=== PATIENT | male | born 1935 | race Caucasian/White ===

== ENCOUNTER → 2018-06-04 10:44 | Outpatient (CLI) | payer MEDICARE, OTHER, SELFPAY ==
--- NOTE | 2018-06-04 | DI.ECHO.S_ITS ---
[facility]---------+ [facility] +---------+ : : [address] : [place] [address] : : : : [id number] : : : : Phone: [phone] +---------+ Echocardiogram Report + + :Name: MIKAYLA ORELLANA Study Date: 06/04/2018 Height: 69 in : :[facility] Weight: 220 lb : : Gender: Male BSA: 2.2 m2 : :: 1935 Age: 82 yrs BP: 134/80 mmHg: :Reason For Study: DYSPNEA : : Performed By: Renetta Rodgers : :Referring: JAYLEN MORENO : + + Interpretation Summary Left ventricular size and systolic function are normal without focal wall motion abnormalities with the ejection fraction visually estimated to be 60- 65% with borderline concentric left ventricular hypertrophy. There has been no significant change since the previous study. The right ventricle is not well visualized but grossly appears normal in size with probable normal systolic function and is likely unchanged compared to the previous study. The right ventricular systolic pressure is estimated to be at least 45 mmHg based on an estimated right atrial pressure of 8 mm Hg, and is likely slightly lower compared to the previous study. The left atrium is mildly dilated while the right atrium is severely dilated. The left atrium has mildly decreased in size but the right atrium is significantly larger compared to the previous study. There is moderate mitral regurgitation that is unchanged compared to the previous study. There is moderate aortic regurgitation, moderate tricuspid regurgitation, and mild pulmonic regurgitation that are all slightly more prominent compared to the previous study. The ascending aorta is mildly enlarged but is unchanged compared to the previous study. The patient was in atrial fibrillation with heart rates between 83-121 bpm which is slightly faster compared to the previous study. Procedure: A two-dimensional transthoracic echocardiogram with color flow and Doppler was performed. The study quality was technically difficult. Comparison is made with the echocardiogram of 02/06/2017. A contrast injection of Definity was performed to improve assessment of LV function. The patient was in atrial fibrillation with heart rates between 83-121 bpm during the exam. This is slightly faster compared to the previous study. Left Ventricle: The left ventricle is normal in size. There is borderline concentric left ventricular hypertrophy. Left ventricular systolic function is normal without focal wall motion abnormalities. The ejection fraction is estimated to be 60-65%. Diastolic function could not be accurately assessed due to atrial fibrillation. There has been no significant change since the previous study. Right Ventricle: The right ventricle is not well visualized. The right ventricle grossly appears normal in size with probable normal systolic function. This is unchanged compared to the previous study. Atria: The left atrium is mildly dilated. The left atrium has mildly decreased in size since the prior echo exam. The right atrium is severely dilated. This is significantly larger compared to the previous study. There is no Doppler evidence for an interatrial shunt. Mitral Valve: The mitral valve leaflets appear mildly thickened, but open well. There is moderate mitral regurgitation. This is unchanged compared to the previous study. Aortic Valve: The aortic valve is trileaflet. There is mild aortic valve sclerosis. There is moderate aortic regurgitation. This is slightly more prominent compared to the previous study. Tricuspid Valve: The tricuspid valve is not well visualized, but is grossly normal. There is moderate tricuspid regurgitation. This is slightly more prominent compared to the previous study. The right ventricular systolic pressure is estimated to be at least 45 mmHg based on an estimated right atrial pressure of 8 mm Hg. And is likely slightly lower compared to the previous study. Pulmonic Valve: The pulmonic valve is not well seen, but is grossly normal. There is mild pulmonic regurgitation. This is slightly more prominent compared to the previous study. Great Vessels: The aortic root is normal size. The ascending aorta is mildly enlarged. This is unchanged compared to the previous study. The aortic arch is normal in size. The pulmonary artery is normal size. The IVC is dilated (diameter is greater than 2.1 cm) yet it collapses greater than 50% with a sniff. This suggests a right atrial pressure of 8 mm Hg. Pericardium/ Pleura There is no pericardial effusion. There is no pleural effusion. MMode/2D Measurements & Calculations LVIDd: 3.8 cm LVOT diam: 2.2 cm LVIDs: 2.4 cm Ao root diam: 3.3 cm FS: 36.2 % asc Aorta Diam: 3.8 cm IVSd: 1.2 cm Ao Arch Diam (distal): 2.9 cm LVPWd: 1.3 cm LV lopez. diameter/BSA (cm/m^2): 1.8 LV sys. diameter/BSA (cm/m^2): 1.1 LA A2 area: 21.8 cm2 RA long axis: 7.6 cm LA A4 area: 29.2 cm2 RA area: 33.9 cm2 LA length (vol): 6.7 cm RA vol: 129.1 ml LA vol: 80.2 ml RA : 60.0 ml/m2 LA vol index: 37.3 ml/m2 IVC diam: 2.1 cm Doppler Measurements & Calculations Ao V2 max: 141.0 cm/sec LVOT Max Satinder: 84.1 cm/sec Ao V2 mean: 94.2 cm/sec LV V1 max P.8 mmHg Ao max P.9 mmHg LV V1 VTI: 16.4 cm Ao mean P.9 mmHg SATISH(I,D): 2.5 cm2 Ao V2 VTI: 25.1 cm SATISH(V,D): 2.3 cm2 sev ratio: 0.66 SATISH indexed to BSA (cm^2/m^2): 1.2 AI P1/2t: 424.1 msec AI dec slope: 296.4 cm/sec2 MV E max satinder: 122.9 cm/sec TR max satinder: 305.2 cm/sec MV dec time: 0.16 sec TR max P.3 mmHg SV(LVOT): 62.8 ml Reading Physician:PM
--- NOTE | 2018-06-12 10:49 | PM.PFT.1 ---
Pulmonary Function Test Referral & Results Date Patient Seen: 06/04/18 Requesting provider: Macey De La Cruz Indication: Exertional dyspnea Results: The spirometry demonstrates an FVC of 2.23 L which is 58% of predicted. The FEV1 was measured at 1.62 L which is 59% of predicted. The FEV1/FVC ratio was 72 which is 101% of predicted. Following the administration of bronchodilator there was 11% improvement in FEV1 and a 43% improvement in FEF 25-75%. Lung volumes show an SVC of 2.56 L which is 60% of predicted. The diffusing capacity was measured at 20.82 which is 67% of predicted. No hemoglobin value was provided, so no correction for potential anemia could be made, if appropriate. The maximum voluntary ventilation was reduced Interpretation: This study demonstrates moderate obstructive lung disease with limited evidence of benefit following bronchodilator, particularly small airway flow based on improvement in FEF 25-75% there is also a mild reduction in lung volumes suggesting mild restrictive lung disease There is also a reduction in diffusing capacity suggesting an element of disease at the capillary alveolar level Clinical correlation suggested
== END ==
PROVIDERS: PCP Specialist; Visit Provider Internal Medicine Critical Care Medicine
DX: R06.09 Other forms of dyspnea (principal)
CPT/HCPCS: 94060; 94726; 94729; C8929; Q9957

== ENCOUNTER → 2019-08-11 15:56 | Outpatient (CLI) | payer MEDICARE, OTHER, SELFPAY ==
--- NOTE | 2019-08-11 | DI.ECHO.S_ITS ---
[facility]---------+ [facility] +---------+ : : [address] : [place] [address] : : : : [id number] : : : : Phone: [phone] : [phone] +---------+ Echocardiogram Report + + :Name: MIKAYLA ORELLANA Study Date: 08/11/2019 Height: 69 in : :[facility] Weight: 216 lb : : Gender: Male BSA: 2.1 m2 : :: 1935 Age: 83 yrs BP: 122/74 mmHg: :Reason For Study: Shortness of breath : : Performed By: Giovanna Hong : :Referring: DALY NAVAS G : + + Interpretation Summary 1) Normal left ventricular size and systolic function (EF 55-60%). 2) There are no obvious focal wall motion abnormalities noted but poor endocardial definition reduces the sensitivity for the detection of such. 3) Grossly, normal right ventricular size and function. 4) There is moderate biatrial enlargement. 5) There is mild to moderate aortic regurgitation. 6) Compared to the Echo done 06/04/2018, no significant change. Procedure: A two-dimensional transthoracic echocardiogram with color flow and Doppler was performed. The study quality was technically difficult. Comparison is made with the echocardiogram of 06/04/2018. The heart rate ranged between 68-83 bpm during the study. Left Ventricle: The left ventricle is normal in size. Left ventricular wall thickness is mildly increased. The ejection fraction is estimated to be 55- 60%. Left ventricular systolic function is normal. There are no obvious focal wall motion abnormalities noted but poor endocardial definition reduces the sensitivity for the detection of such. Diastolic parameters suggest a relaxation abnormality of the left ventricle, consistent with probable normal filling pressures. Right Ventricle: The right ventricle is not well visualized. The right ventricular systolic function is normal. Atria: There is moderate biatrial enlargement. There is no Doppler evidence for an interatrial shunt. Mitral Valve: The mitral valve is normal in structure and function. There is mild mitral regurgitation. Aortic Valve: The aortic valve is trileaflet. There is no aortic valve stenosis. There is mild to moderate aortic regurgitation. Tricuspid Valve: The tricuspid valve is not well visualized, but is grossly normal. There is mild to moderate tricuspid regurgitation. The right ventricular systolic pressure is estimated to be at least 36 mmHg based on an estimated right atrial pressure of 3 mm Hg. Pulmonic Valve: The pulmonic valve is not well visualized. The pulmonic valve is not well seen, but is grossly normal. There is mild pulmonic regurgitation. Great Vessels: The aortic root is normal size. The ascending aorta is at the upper limits of normal in size. The IVC is of normal diameter and collapses greater than 50% with a sniff. This suggests a low right atrial pressure of 3 mm Hg. Pericardium/ Pleura There is no pericardial effusion. There is no pleural effusion. MMode/2D Measurements & Calculations LVIDd: 4.6 cm LVOT diam: 2.2 cm LVIDs: 3.4 cm Ao root diam: 3.5 cm FS: 26.2 % asc Aorta Diam: 3.8 cm EPSS: 0.84 cm Ao Arch Diam (Prox Trans): 3.1 cm IVSd: 1.1 cm LVPWd: 1.2 cm LV lopez. diameter/BSA (cm/m^2): 2.2 LV sys. diameter/BSA (cm/m^2): 1.6 LA A2 area: 28.0 cm2 RA long axis: 6.9 cm LA A4 area: 27.3 cm2 RA area: 26.6 cm2 LA length (vol): 7.0 cm RA vol: 87.1 ml LA vol: 92.5 ml RA : 40.8 ml/m2 LA vol index: 43.3 ml/m2 IVC diam: 1.8 cm TAPSE: 2.0 cm Doppler Measurements & Calculations Ao V2 max: 161.6 cm/sec LVOT Max Satinder: 95.2 cm/sec Ao V2 mean: 105.1 cm/sec LV V1 max P.6 mmHg Ao max P.4 mmHg LV V1 VTI: 17.5 cm Ao mean P.2 mmHg SATISH(I,D): 2.2 cm2 Ao V2 VTI: 29.8 cm SATISH(V,D): 2.3 cm2 sev ratio: 0.59 SATISH indexed to BSA (cm^2/m^2): 1.1 AI P1/2t: 793.3 msec AI dec slope: 151.4 cm/sec2 MV E max satinder: 110.1 cm/sec TR max satinder: 285.4 cm/sec MV A max satinder: 42.2 cm/sec TR max P.6 mmHg MV E/A: 2.6 PA V2 max: 88.2 cm/sec Med Peak E' Satinder: 9.5 cm/sec PA V2 mean: 52.9 cm/sec E/E' med: 11.6 PA mean P.3 mmHg Lat Peak E' Satinder: 8.8 cm/sec E/E' lat: 12.5 E/e' average: 12.0 MV dec time: 0.17 sec SV(LVOT): 67.0 ml Reading Physician:10:29 AM
== END ==
PROVIDERS: PCP Family Medicine; Referring Provider Family Medicine; Visit Provider Family Medicine
DX: I08.3 Combined rheumatic disorders of mitral, aortic and tricuspid valves (principal); R06.02 Shortness of breath; I25.10 Atherosclerotic heart disease of native coronary artery without angina pectoris
CPT/HCPCS: 93306

== ENCOUNTER → 2021-06-26 15:20 | Outpatient (CLI) | payer MEDICARE, OTHER, SELFPAY ==
--- NOTE | 2021-06-26 15:23 | DI.ECHO.S_ITS ---
[facility] +---------+ [facility] +---------+ : : [address] : [place] : : : : [id number] : : : : Phone: [phone] : [phone] +---------+ Echocardiogram Report + + :Name: MIKAYLA ORELLANA Study Date: 06/26/2021 Height: 69 in : :[facility] ReadingLocation: Weight: 220 lb : : Gender: Male BSA: 2.2 m2 : :: 1935 Age: 85 yrs BP: 120/73 mmHg: :Reason For Study: PULMONARY HYPERTENSION : :Ordering Physician: MILA, : :KENN Performed By: Giovanna Hong : :Referring: KENN ZARAGOZA : + + Interpretation Summary Left ventricular systolic function remains normal with an estimated ejection fraction of 60 to 65% without any focal wall motion abnormality and appears unchanged from the previous study. Left ventricular size and wall thickness are normal although left ventricular size has increased slightly. Diastolic function remains challenging to assess because of atrial fibrillation but filling pressures are likely similar, perhaps minimally higher compared to the previous study. The right ventricle remains normal and unchanged. Right ventricular systolic pressure is estimated at 41 mmHg with a CVP of 8 mmHg, and both are likely slightly higher compared to the previous study. There is severe biatrial enlargement with both measuring mildly larger compared to the previous study. There is mild to moderate mitral regurgitation and mild to moderate aortic regurgitation that are both slightly more prominent compared to the previous study. There is mild to moderate tricuspid regurgitation that remains unchanged. The ascending aorta remains mildly enlarged but unchanged at 3.8 cm. The aortic arch is mildly enlarged at 3.5 cm, up from 3.1 cm previously. The patient remained in atrial fibrillation at 60 to 70 bpm. Procedure: A two-dimensional transthoracic echocardiogram with color flow and Doppler was performed. The study quality was technically adequate. Comparison is made with the echocardiogram of 08/11/2019. The patient was in atrial fibrillation with heart rates between 60-70 bpm during the exam. Left Ventricle: The left ventricle is normal in size and wall thickness. The estimated left ventricular end diastolic volume is 75 mL, up from 46 ml. Left ventricular systolic function appears normal without focal wall motion abnormalities. The ejection fraction is estimated to be 60-65%. This is unchanged compared to the previous study. Diastolic function could not be accurately assessed due to atrial fibrillation. This is likely unchanged, perhaps minimally higher compared to the previous study. Right Ventricle: The right ventricle is normal in size and function. This is unchanged compared to the previous study. Atria: Both atria are severely dilated. Both atria have mildly increased in size since the prior echo exam. There is no Doppler evidence for an interatrial shunt. Mitral Valve: The mitral valve leaflets appear borderline thickened, but open well. There is a flat closure plane of the the mitral valve leaflets. There is mild to moderate mitral regurgitation. There is an eccentric jet of mitral regurgitation that is directed posteriorly. This is slightly more prominent compared to the previous study. Aortic Valve: The aortic valve is trileaflet. The aortic valve is mildly calcified. The aortic valve opens well. There is no aortic valve stenosis. There is mild to moderate aortic regurgitation. This is slightly more prominent compared to the previous study. Tricuspid Valve: The tricuspid valve is normal in structure and function. There is mild to moderate tricuspid regurgitation. This is unchanged compared to the previous study. The right ventricular systolic pressure is estimated to be at least 41 mmHg based on an estimated right atrial pressure of 8 mm Hg. This is slightly higher compared to the previous study. Pulmonic Valve: The pulmonic valve is not well seen, but is grossly normal. There is trace pulmonic regurgitation. Great Vessels: The aortic root is normal size. The ascending aorta is mildly enlarged. This is unchanged compared to the previous study. The aortic arch is mildly enlarged. This is slightly larger compared to the previous study. The IVC is dilated (diameter is greater than 2.1 cm) yet it collapses greater than 50% with a sniff. This suggests a right atrial pressure of 8 mm Hg. Pericardium/ Pleura There is no pericardial effusion. There is no pleural effusion. MMode/2D Measurements & Calculations LVIDd: 4.3 cm LVOT diam: 2.1 cm LVIDs: 2.7 cm Ao root diam: 3.6 cm FS: 36.9 % asc Aorta Diam: 3.8 cm IVSd: 1.0 cm Ao Arch Diam (Prox Trans): 3.5 cm LVPWd: 1.1 cm LV lopez. diameter/BSA (cm/m^2): 2.0 LV sys. diameter/BSA (cm/m^2): 1.3 LA A2 area: 28.5 cm2 RA long axis: 6.8 cm LA A4 area: 32.6 cm2 RA area: 29.7 cm2 LA length (vol): 7.2 cm RA vol: 109.5 ml LA vol: 109.3 ml RA : 50.9 ml/m2 LA vol index: 50.8 ml/m2 IVC diam: 2.3 cm RVD1 (basal): 3.8 cm RVD2 (mid): 3.2 cm TAPSE: 1.7 cm Doppler Measurements & Calculations Ao V2 max: 150.6 cm/sec LVOT Max Satinder: 84.3 cm/sec Ao V2 mean: 96.5 cm/sec LV V1 max P.8 mmHg Ao max P.1 mmHg LV V1 VTI: 18.9 cm Ao mean P.3 mmHg SATISH(I,D): 2.5 cm2 Ao V2 VTI: 27.2 cm SATISH(V,D): 2.0 cm2 sev ratio: 0.70 SATISH indexed to BSA (cm^2/m^2): 1.2 AI P1/2t: 731.8 msec AI dec slope: 150.4 cm/sec2 MV E max satinder: 133.5 cm/sec TR max satinder: 286.4 cm/sec MV A max satinder: 0.97 cm/sec TR max P.8 mmHg MV E/A: 137.1 PA V2 max: 77.9 cm/sec Med Peak E' Satinder: 7.5 cm/sec PA V2 mean: 51.6 cm/sec E/E' med: 17.8 PA mean P.2 mmHg Lat Peak E' Satinder: 8.4 cm/sec PA pr(Accel): 37.9 mmHg E/E' lat: 15.9 E/e' average: 16.9 MV dec time: 0.19 sec SV(LVOT): 67.4 ml Reading Physician:08:35 AM
== END ==
PROVIDERS: PCP Physician Assistant Medical; Referring Provider Physician Assistant Medical; Visit Provider Physician Assistant Medical
DX: I27.0 Primary pulmonary hypertension (principal); I08.3 Combined rheumatic disorders of mitral, aortic and tricuspid valves; I77.89 Other specified disorders of arteries and arterioles
CPT/HCPCS: 93306

== ENCOUNTER → 2024-05-12 14:37 | Outpatient (CLI) | payer MEDICARE, OTHER, SELFPAY ==
--- NOTE | 2024-05-12 14:38 | DI.ECHO.S_ITS ---
[facility] +---------+ [facility] : : [address] : : [place] : : [id number] : : Phone: [phone] Echocardiogram Report + + :Name: MIKAYLA ORELLANA Study Date: 05/12/2024 Height: 69 in : :[facility] ReadingLocation: Weight: 200 lb : : Gender: Male BSA: 2.1 m2 : :: 1935 Age: 88 yrs BP: 135/86 mmHg: :Reason For Study: PULMONARY HYPERTENSION : :Ordering Physician: MILA, : :KENN Performed By: Giovanna Hong : :Referring: KENN ZARAGOZA : + + Interpretation Summary Left ventricular systolic function remains excellent with an estimated ejection fraction of 60 to 70% with [id number] variability but no focal wall motion abnormality. There is mild LVH but appears unchanged. While diastolic function and filling pressures cannot be assessed, they are likely similar to the previous exam without any evidence for markedly elevated filling pressures. The right ventricle grossly appears normal and unchanged from the previous study. Right ventricular systolic pressure is likely around 49 mmHg with a CVP of 8 mmHg, similar, perhaps slightly higher, compared to the previous study. There is severe biatrial enlargement that remains unchanged. There is mild to moderate mitral, mild to moderate tricuspid, and mild to moderate aortic valve regurgitation that all appear unchanged from the previous study. There is mild pulmonic valve regurgitation that is slightly more prominent compared to the previous study. The ascending aorta is mild to moderately enlarged at 4.0 cm compared to 3.8 cm previously. The aortic arch remains mildly enlarged but unchanged at 3.5 cm. The patient was in atrial fibrillation at 75 to 90 bpm, which is slightly faster compared to the previous exam. Procedure: A two-dimensional transthoracic echocardiogram with color flow and Doppler was performed. The study quality was technically adequate. Comparison is made with the echocardiogram of 06/26/2021. The patient was in atrial fibrillation with heart rates between 75-90 bpm during the exam. This is slightly faster compared to the previous study. Left Ventricle: The left ventricle is normal in size. There is mild concentric left ventricular hypertrophy. Left ventricular systolic function appears normal without focal wall motion abnormalities. Left ventricular ejection fraction is estimated to be 60 to 70% with [id number] variability but no focal wall motion abnormality. This is unchanged compared to the previous study. Diastolic function could not be accurately assessed due to atrial fibrillation. This is unchanged compared to the previous study. Right Ventricle: The right ventricle is normal in size and function. This is unchanged compared to the previous study. Atria: Both atria are severely dilated. This is unchanged compared to the previous study. There is no Doppler evidence for an interatrial shunt. Mitral Valve: The mitral valve leaflets appear borderline thickened, but open well. There is mild mitral annular calcification. There is mild to moderate mitral regurgitation. This is unchanged compared to the previous study. Aortic Valve: The aortic valve is trileaflet. The aortic valve is mildly calcified. The aortic valve opens well. There is no aortic valve stenosis. There is mild to moderate aortic regurgitation. This is unchanged compared to the previous study. Tricuspid Valve: The tricuspid valve leaflets are thin and pliable. There is mild to moderate tricuspid regurgitation. This is unchanged compared to the previous study. The right ventricular systolic pressure is estimated to be at least 49 mmHg based on an estimated right atrial pressure of 8 mm Hg. This is likely similar, perhaps slightly higher, compared to the previous study. Pulmonic Valve: The pulmonic valve leaflets are thin and pliable; valve motion is normal. There is mild pulmonic regurgitation. This is slightly more prominent compared to the previous study. Great Vessels: The aortic root is normal size. The ascending aorta is mild- moderately enlarged. The aortic arch is mildly enlarged. This is unchanged to slightly larger compared to the previous study. The IVC is dilated (diameter is greater than 2.1 cm) yet it collapses greater than 50% with a sniff. This suggests a right atrial pressure of 8 mm Hg. Pericardium/ Pleura There is no pericardial effusion. There is no pleural effusion. MMode/2D Measurements & Calculations LVIDd: 4.0 cm LVOT diam: 2.3 cm LVIDs: 2.5 cm Ao root diam: 3.5 cm FS: 38.2 % asc Aorta Diam: 4.0 cm EPSS: 1.3 cm Ao Arch Diam (distal): 3.5 cm IVSd: 1.1 cm LVPWd: 1.2 cm LV lopez. diameter/BSA (cm/m^2): 1.9 LV sys. diameter/BSA (cm/m^2): 1.2 LA A2 area: 29.6 cm2 RA long axis: 7.0 cm LA A4 area: 27.4 cm2 RA area: 29.9 cm2 LA length (vol): 7.0 cm RA vol: 108.3 ml LA vol: 98.2 ml RA : 52.4 ml/m2 LA vol index: 47.5 ml/m2 IVC diam: 2.2 cm RVD1 (basal): 4.0 cm RVD2 (mid): 3.1 cm TAPSE: 1.6 cm Doppler Measurements & Calculations Ao V2 max: 177.9 cm/sec LVOT Max Satinder: 92.2 cm/sec Ao V2 mean: 116.5 cm/sec LV V1 max P.4 mmHg Ao max P.7 mmHg LV V1 VTI: 16.4 cm Ao mean P.2 mmHg SATISH(I,D): 2.1 cm2 Ao V2 VTI: 30.9 cm SATISH(V,D): 2.1 cm2 sev ratio: 0.53 SATISH indexed to BSA (cm^2/m^2): 1.0 AI P1/2t: 551.8 msec AI dec slope: 211.9 cm/sec2 MV E max satinder: 127.9 cm/sec TR max satinder: 319.3 cm/sec MV A max satinder: 1.1 cm/sec TR max P.8 mmHg MV E/A: 118.3 PA V2 max: 129.4 cm/sec Med Peak E' Satinder: 10.0 cm/sec PA V2 mean: 72.9 cm/sec E/E' med: 12.8 PA mean P.6 mmHg Lat Peak E' Satinder: 8.0 cm/sec PA pr(Accel): 49.5 mmHg E/E' lat: 16.0 E/e' average: 14.4 MV dec time: 0.16 sec SV(LVOT): 65.3 ml Reading Physician:04:47 PM
== END ==
PROVIDERS: PCP Physician Assistant Medical; Referring Provider Specialist; Visit Provider Specialist
DX: I27.20 Pulmonary hypertension, unspecified (principal); I08.3 Combined rheumatic disorders of mitral, aortic and tricuspid valves; I77.89 Other specified disorders of arteries and arterioles
CPT/HCPCS: 93306